=== PATIENT | female | born 1970 | race African-American/Black ===

== ENCOUNTER 2016-11-30 12:39 | Inpatient (IN) | payer OTHER ==
[2016-11-30] VITALS (7 sets, daily range): BP systolic 112–176; BP diastolic 66–100
[~2016-11-30] VITALS: Ht 157.4 cm; Wt 93.1 kg
[~2016-11-30 12:39] MED LIST: AUGMENTIN 875875 MG PO; BLOOD PRESSURE PO; MOTRIN800 MG PO; NKHM
[2016-11-30] MEDS ORDERED: NORVASC10 MG PO (13:13)
[2016-11-30 13:33] LABS: BASO # 0.1 10*3/uL (0.0-0.1); BASO % 0.7 % (0.0-1.0); EOS # 0.9 10*3/uL (0.0-0.4); EOS % 7.9 % (1.0-4.0); HEMATOCRIT 37.6 % (37.0-47.0); HEMOGLOBIN 11.9 g/dl (12.0-16.0); IG # 0.1 10*3/uL (0.0-0.1); LYMPH # 2.3 10*3/uL (1.3-4.4); LYMPH % 20.4 % (27.0-41.0); MEAN CELL VOLUME 85.1 fl (81.0-99.0); MEAN CORPUSCULAR HGB 26.9 pg (27.0-31.0); MEAN CORPUSCULAR HGB CONC 31.6 g/dl (33.0-37.0); MEAN PLATELET VOLUME 9.7 fl (9.6-12.3); MONO # 0.7 10*3/uL (0.1-1.0); MONO % 6.4 % (3.0-9.0); NEUT # 7.2 10*3/uL (2.3-7.9); NEUT % 64.2 % (47.0-73.0); PLATELET COUNT AUTOMATED 334 10*3/uL (130-400); RED BLOOD COUNT 4.42 10*6/uL (4.10-5.10); RED CELL DISTRI WIDTH 13.2 % (0-14.5); WHITE BLOOD COUNT 11.3 10*3/uL (4.8-10.8)
[2016-11-30 13:50] LABS: ALBUMIN 3.8 gm/dl (3.1-4.5); ALKALINE PHOSPHATASE 98 U/L (45-117); BILIRUBIN, TOTAL 0.4 mg/dl (0.2-1.0); BUN 9 mg/dl (7-24); CARBON DIOXIDE 30 mmol/L (21-32); CHLORIDE 103 mmol/L (98-107); EST GLOM FILT AFRICAN AMERICAN > 60 ml/min; GLUCOSE 138 mg/dL (65-99); POTASSIUM 3.7 mmol/L (3.5-5.1); SGOT/AST 17 IU/L (3-35); SGPT/ALT 24 U/L (12-78); SODIUM 140 mmol/L (136-145); TOTAL PROTEIN 7.6 gm/dL (6.4-8.2)
[2016-12-01] VITALS (7 sets, daily range): BP systolic 117–153; BP diastolic 60–88
[2016-12-01 07:38] LABS: BASO % 0.1 % (0.0-1.0); HEMATOCRIT 36.8 % (37.0-47.0); HEMOGLOBIN 11.5 g/dl (12.0-16.0); IG # 0.2 10*3/uL (0.0-0.1); LYMPH # 1.6 10*3/uL (1.3-4.4); MEAN CELL VOLUME 83.8 fl (81.0-99.0); MEAN CORPUSCULAR HGB 26.2 pg (27.0-31.0); MEAN CORPUSCULAR HGB CONC 31.3 g/dl (33.0-37.0); MEAN PLATELET VOLUME 10.1 fl (9.6-12.3); MONO # 0.3 10*3/uL (0.1-1.0); MONO % 1.8 % (3.0-9.0); NEUT # 13.7 10*3/uL (2.3-7.9); NEUT % 87.1 % (47.0-73.0); PLATELET COUNT AUTOMATED 360 10*3/uL (130-400); RED BLOOD COUNT 4.39 10*6/uL (4.10-5.10); RED CELL DISTRI WIDTH 13.2 % (0-14.5); WHITE BLOOD COUNT 15.7 10*3/uL (4.8-10.8)
[2016-12-01 08:11] LABS: ALBUMIN 3.7 gm/dl (3.1-4.5); ALKALINE PHOSPHATASE 85 U/L (45-117); BILIRUBIN, TOTAL 0.5 mg/dl (0.2-1.0); BUN 13 mg/dl (7-24); CARBON DIOXIDE 29 mmol/L (21-32); CHLORIDE 100 mmol/L (98-107); CHOLESTEROL 199 mg/dL (<200); EST GLOM FILT AFRICAN AMERICAN > 60 ml/min; GLUCOSE 152 mg/dL (65-99); HDL CHOLESTEROL 69 mg/dl (40-60); LDL CHOLESTEROL 121 mg/dL (9-159); PHOSPHOROUS 3.3 mg/dL (2.5-4.9); POTASSIUM 3.8 mmol/L (3.5-5.1); SGOT/AST 13 IU/L (3-35); SGPT/ALT 24 U/L (12-78); SODIUM 136 mmol/L (136-145); TOTAL PROTEIN 7.5 gm/dL (6.4-8.2); TRIGLYCERIDES 43 mg/dl (<150); VLDL CHOLESTEROL 9 mg/dL (6-40)
[2016-12-01 08:17] LABS: THYROID STIM HORMONE (HS) 0.388 uIU/ml (0.358-4.75)
[2016-12-01 08:19] LABS: HEMOGLOBIN A1c 6.2 % (4.8-5.6)
[2016-12-01 08:25] LABS: PROTHROMBIN TIME 10.3 SECONDS (9.0-12.4)
[2016-12-01 09:16] LABS: VITAMIN D, 25-HYDROXY 13.8 ng/mL (30-100)
[2016-12-01 09:17] LABS: FOLIC ACID 11.98 ng/mL (>5.38)
[2016-12-02] VITALS: BP 141/82
[2016-12-02 06:48] LABS: BASO # 0.1 10*3/uL (0.0-0.1); BASO % 0.4 % (0.0-1.0); EOS # 0.1 10*3/uL (0.0-0.4); EOS % 0.5 % (1.0-4.0); HEMATOCRIT 35.2 % (37.0-47.0); HEMOGLOBIN 10.9 g/dl (12.0-16.0); IG # 0.1 10*3/uL (0.0-0.1); LYMPH # 4.4 10*3/uL (1.3-4.4); LYMPH % 29.2 % (27.0-41.0); MEAN CELL VOLUME 85.6 fl (81.0-99.0); MEAN CORPUSCULAR HGB 26.5 pg (27.0-31.0); MEAN PLATELET VOLUME 10.2 fl (9.6-12.3); NEUT # 9.2 10*3/uL (2.3-7.9); NEUT % 62.1 % (47.0-73.0); PLATELET COUNT AUTOMATED 326 10*3/uL (130-400); RED BLOOD COUNT 4.11 10*6/uL (4.10-5.10); RED CELL DISTRI WIDTH 13.5 % (0-14.5); WHITE BLOOD COUNT 14.9 10*3/uL (4.8-10.8)
[2016-12-02 08:00] VITALS: BP 125/69
[2016-12-02 12:00] VITALS: BP 114/73
[2016-12-02] MEDS ORDERED: VITAMIN D50000 I3 PO (12:32)
[2016-12-02] MEDS ORDERED: LISINOPRIL5 MG PO (12:32)
[2016-12-02] MEDS ORDERED: TOPAMAX25 M3 PO (12:32)
[2016-12-02] MEDS ORDERED: DEEP SEA 45 ML45 ML NAS (12:37)
== END 2016-12-02 13:16 | disposition home or self-care (01) | DRG 305 ==
LOC: ED 12:39 → EDHOLD 17:41 → 5E 17:41
PROVIDERS: Internal Medicine; Registered Nurse; Student in an Organized Health Care Education/Training Program
DX: I16.1 Hypertensive emergency (principal); E55.9 Vitamin D deficiency, unspecified; I10 Essential (primary) hypertension; D72.810 Lymphocytopenia; R73.9 Hyperglycemia, unspecified; L83 Acanthosis nigricans; J32.8 Other chronic sinusitis; R42 Dizziness and giddiness; G43.909 Migraine, unspecified, not intractable, without status migrainosus; Z82.3 Family history of stroke; Z82.49 Family history of ischemic heart disease and other diseases of the circulatory system; Z79.899 Other long term (current) drug therapy

== ENCOUNTER 2016-12-20 08:14 | Emergency (ER) | payer OTHER ==
[~2016-12-20 08:14] MED LIST changes: +DEEP SEA 45 ML45 ML NAS; +LISINOPRIL5 MG PO; +NORVASC10 MG PO; +TOPAMAX25 M3 PO; +VITAMIN D50000 I3 PO
[2016-12-20 08:41] LABS: BASO # 0.1 10*3/uL (0.0-0.1); BASO % 0.3 % (0.0-1.0); EOS # 0.2 10*3/uL (0.0-0.4); EOS % 0.7 % (1.0-4.0); HEMATOCRIT 36.1 % (37.0-47.0); HEMOGLOBIN 11.7 g/dl (12.0-16.0); IG # 0.3 10*3/uL (0.0-0.1); LYMPH # 1.3 10*3/uL (1.3-4.4); LYMPH % 5.9 % (27.0-41.0); MEAN CELL VOLUME 84.3 fl (81.0-99.0); MEAN CORPUSCULAR HGB 27.3 pg (27.0-31.0); MEAN CORPUSCULAR HGB CONC 32.4 g/dl (33.0-37.0); MEAN PLATELET VOLUME 9.3 fl (9.6-12.3); MONO # 1.3 10*3/uL (0.1-1.0); NEUT # 18.4 10*3/uL (2.3-7.9); NEUT % 85.9 % (47.0-73.0); PLATELET COUNT AUTOMATED 262 10*3/uL (130-400); RED BLOOD COUNT 4.28 10*6/uL (4.10-5.10); WHITE BLOOD COUNT 21.4 10*3/uL (4.8-10.8)
[2016-12-20 08:50] LABS: PROTHROMBIN TIME 10.7 SECONDS (9.0-12.4)
[2016-12-20 08:58] LABS: ALBUMIN 3.6 gm/dl (3.1-4.5); ALKALINE PHOSPHATASE 107 U/L (45-117); BILIRUBIN, TOTAL 0.7 mg/dl (0.2-1.0); BUN 6 mg/dl (7-24); CARBON DIOXIDE 27 mmol/L (21-32); CHLORIDE 103 mmol/L (98-107); EST GLOM FILT AFRICAN AMERICAN > 60 ml/min; GLUCOSE 152 mg/dL (65-99); POTASSIUM 3.6 mmol/L (3.5-5.1); SGOT/AST 22 IU/L (3-35); SGPT/ALT 31 U/L (12-78); SODIUM 141 mmol/L (136-145); TOTAL PROTEIN 7.9 gm/dL (6.4-8.2)
[2016-12-20 08:59] LABS: TROPONIN I < 0.015 ng/ml (<0.045)
[2016-12-20] MEDS ORDERED: CEPACOL SORE T1 EAC1 MM (09:15)
[2016-12-20] MEDS ORDERED: AUGMENTIN 875875 MG PO (09:15)
== END 2016-12-20 10:59 | disposition home or self-care (01) ==
LOC: ED 08:14
PROVIDERS: Student in an Organized Health Care Education/Training Program
DX: J01.90 Acute sinusitis, unspecified (principal); I10 Essential (primary) hypertension; G43.909 Migraine, unspecified, not intractable, without status migrainosus; Z79.899 Other long term (current) drug therapy

== ENCOUNTER 2016-12-21 09:14 | Emergency (ER) | payer OTHER ==
[~2016-12-21] VITALS: Ht 157.4 cm; Wt 90.7 kg
[~2016-12-21 09:14] MED LIST changes: +CEPACOL SORE T1 EAC1 MM
[2016-12-21 09:55] LABS: HEMATOCRIT 35.1 % (37.0-47.0); HEMOGLOBIN 11.4 g/dl (12.0-16.0); MEAN CELL VOLUME 85.2 fl (81.0-99.0); MEAN CORPUSCULAR HGB 27.7 pg (27.0-31.0); MEAN CORPUSCULAR HGB CONC 32.5 g/dl (33.0-37.0); MEAN PLATELET VOLUME 9.6 fl (9.6-12.3); PLATELET COUNT AUTOMATED 281 10*3/uL (130-400); RED BLOOD COUNT 4.12 10*6/uL (4.10-5.10); RED CELL DISTRI WIDTH 13.8 % (0-14.5); WHITE BLOOD COUNT 18.3 10*3/uL (4.8-10.8)
[2016-12-21 10:14] LABS: ALBUMIN 3.5 gm/dl (3.1-4.5); ALKALINE PHOSPHATASE 119 U/L (45-117); BILIRUBIN, TOTAL 0.6 mg/dl (0.2-1.0); BUN 8 mg/dl (7-24); CARBON DIOXIDE 29 mmol/L (21-32); CHLORIDE 104 mmol/L (98-107); EST GLOM FILT AFRICAN AMERICAN > 60 ml/min; GLUCOSE 120 mg/dL (65-99); POTASSIUM 3.4 mmol/L (3.5-5.1); SGOT/AST 21 IU/L (3-35); SGPT/ALT 33 U/L (12-78); SODIUM 142 mmol/L (136-145)
[2016-12-21 10:16] LABS: MONOCYTE # 2.2 10*3/uL (0.1-1.0); NEUTROPHIL # 14.1 10*3/uL (2.3-7.9); NEUTROPHILS 77 % (47-73); PLATELET SUFFICIENCY NORMAL (NORMAL); TOTAL CELLS COUNTED 100 #CELLS
== END 2016-12-21 14:12 | disposition admitted as inpatient to this hospital (09) ==
LOC: ED 09:14
PROVIDERS: Registered Nurse
DX: A41.9 Sepsis, unspecified organism (principal); J03.90 Acute tonsillitis, unspecified; J02.0 Streptococcal pharyngitis; F17.200 Nicotine dependence, unspecified, uncomplicated; Z79.899 Other long term (current) drug therapy

== ENCOUNTER 2016-12-21 12:05 | Inpatient (IN) | payer OTHER ==
[~2016-12-21] VITALS: Ht 167.6 cm; Wt 72.3 kg
--- NOTE | ~2016-12-21 | CON ---
[place], [place] REPORT OF CONSULTATION NAME: ARELY BEAN UNIT #: [id number] ROOM: 518 DOCTOR: DENNY JOHN MD BIRTHDATE: [birth year] DOS: 12/22/2016 ATTENDING PHYSICIAN: ____ REASON FOR CONSULTATION: Severe tonsillitis. HISTORY OF PRESENT ILLNESS: The patient is a 46-year-old -[place] female who was admitted to [facility] with severe sore throat. The patient did have a rapid strep test positive for of group A beta hemolytic strep. The patient was initially seen in the ER and discharged on Augmentin, but readmitted the following day because of progressive swelling. CT scan of soft tissues of the neck showed no evidence of peritonsillar abscess. The patient has been subsequently admitted and treated with IV Solu-Medrol and Unasyn. PAST MEDICAL HISTORY: Chronic sinusitis, hypertension, polycystic ovarian syndrome, history of tension headache. PAST SURGICAL HISTORY: Laparoscopy, D and C. CURRENT MEDICATIONS: IV Solu-Medrol, vitamin D, lisinopril, Lovenox, Norvasc, potassium, Unasyn. ALLERGIES: There are no known drug allergies. PHYSICAL EXAMINATION: HEENT: The oral cavity and oropharynx shows grade 3 tonsillar enlargement with erythema. There is no midline shift of the uvula. No evidence of peritonsillar abscess. Nose is clear. Ears clear. NECK: Show shotty adenopathy. HEART: Regular rate and rhythm. LUNGS: Clear to auscultation. IMPRESSION: Severe streptococcal tonsillitis. RECOMMENDATIONS: Continue IV Unasyn and IV steroids. The patient is showing signs of clinical improvement and I have recommended that she follow up with ENT 2 weeks after discharge from the hospital. There is no indication for surgical intervention at this time. [place], [place] REPORT OF CONSULTATION NAME: VIKASARELY H UNIT #: [id number] ROOM: 518 DOCTOR: DENNY JOHN MD BIRTHDATE: [birth year] DENNY JOHN MD CM:CONSTR:REPORT OF CONSULTATION 1517 12/22/16 1629 interface
[2016-12-21 14:00] VITALS: BP 126/79
[2016-12-21 16:00] VITALS: BP 124/69
[2016-12-21 20:00] VITALS: BP 120/75
[2016-12-22] VITALS: BP 123/75
[2016-12-22 04:00] VITALS: BP 134/61; BP 136/78
[2016-12-22 06:17] LABS: BASO % 0.1 % (0.0-1.0); HEMOGLOBIN 10.1 g/dl (12.0-16.0); IG # 0.3 10*3/uL (0.0-0.1); LYMPH # 1.7 10*3/uL (1.3-4.4); LYMPH % 10.3 % (27.0-41.0); MEAN CELL VOLUME 83.6 fl (81.0-99.0); MEAN CORPUSCULAR HGB 27.2 pg (27.0-31.0); MEAN CORPUSCULAR HGB CONC 32.6 g/dl (33.0-37.0); MEAN PLATELET VOLUME 10.2 fl (9.6-12.3); MONO # 0.5 10*3/uL (0.1-1.0); MONO % 2.9 % (3.0-9.0); NEUT # 13.9 10*3/uL (2.3-7.9); NEUT % 85.1 % (47.0-73.0); PLATELET COUNT AUTOMATED 304 10*3/uL (130-400); RED BLOOD COUNT 3.71 10*6/uL (4.10-5.10); RED CELL DISTRI WIDTH 13.7 % (0-14.5); WHITE BLOOD COUNT 16.4 10*3/uL (4.8-10.8)
[2016-12-22 06:24] LABS: HEMOGLOBIN A1c 6.6 % (4.8-5.6)
[2016-12-22 06:45] LABS: BILIRUBIN, TOTAL 0.4 mg/dl (0.2-1.0); BUN 8 mg/dl (7-24); CARBON DIOXIDE 26 mmol/L (21-32); CHLORIDE 103 mmol/L (98-107); CHOLESTEROL 190 mg/dL (<200); EST GLOM FILT AFRICAN AMERICAN > 60 ml/min; GLUCOSE 148 mg/dL (65-99); MAGNESIUM 2.2 mg/dL (1.5-2.1); PHOSPHOROUS 2.4 mg/dL (2.5-4.9); POTASSIUM 3.4 mmol/L (3.5-5.1); SGOT/AST 17 IU/L (3-35); SGPT/ALT 29 U/L (12-78); SODIUM 138 mmol/L (136-145); TOTAL PROTEIN 7.1 gm/dL (6.4-8.2); TRIGLYCERIDES 91 mg/dl (<150); VLDL CHOLESTEROL 18 mg/dL (6-40)
[2016-12-22 06:53] LABS: ALKALINE PHOSPHATASE 104 U/L (45-117); HDL CHOLESTEROL 38 mg/dl (40-60); LDL CHOLESTEROL 134 mg/dL (9-159); THYROID STIM HORMONE (HS) 0.192 uIU/ml (0.358-4.75)
[2016-12-22 07:04] LABS: VITAMIN D, 25-HYDROXY 26.9 ng/mL (30-100)
[2016-12-22 07:05] LABS: FOLIC ACID 13.02 ng/mL (>5.38)
[2016-12-22 08:00] VITALS: BP 132/77
[2016-12-22 12:00] VITALS: BP 134/69
[2016-12-22 16:00] VITALS: BP 136/76
[2016-12-22 20:00] VITALS: BP 121/73; BP 128/85
[2016-12-23] VITALS: BP 131/78
[2016-12-23 06:13] LABS: HEMATOCRIT 31.8 % (37.0-47.0); HEMOGLOBIN 10.4 g/dl (12.0-16.0); MEAN CELL VOLUME 84.1 fl (81.0-99.0); MEAN CORPUSCULAR HGB 27.5 pg (27.0-31.0); MEAN CORPUSCULAR HGB CONC 32.7 g/dl (33.0-37.0); MEAN PLATELET VOLUME 10.1 fl (9.6-12.3); PLATELET COUNT AUTOMATED 370 10*3/uL (130-400); RED BLOOD COUNT 3.78 10*6/uL (4.10-5.10); RED CELL DISTRI WIDTH 13.9 % (0-14.5)
[2016-12-23 06:31] LABS: BUN 9 mg/dl (7-24); CARBON DIOXIDE 29 mmol/L (21-32); CHLORIDE 105 mmol/L (98-107); EST GLOM FILT AFRICAN AMERICAN > 60 ml/min; GLUCOSE 141 mg/dL (65-99); POTASSIUM 3.7 mmol/L (3.5-5.1); SODIUM 142 mmol/L (136-145)
[2016-12-23 06:49] LABS: LYMPHOCYTE # 2.6 10*3/uL (1.3-4.4); METAMYELOCYTES 1 % (0-0); MONOCYTE # 0.7 10*3/uL (0.1-1.0); MYELOCYTES 1 % (0-0); NEUTROPHIL # 13.4 10*3/uL (2.3-7.9); NEUTROPHILS 79 % (47-73); PLATELET SUFFICIENCY NORMAL (NORMAL); TOTAL CELLS COUNTED 100 #CELLS
[2016-12-23 08:00] VITALS: BP 118/80
[2016-12-23 12:00] VITALS: BP 131/81
[2016-12-23] MEDS ORDERED: PREDNISONE10 MG PO (13:42)
[2016-12-23] MEDS ORDERED: D-1000 185 MG-11 TAB PO (13:42)
[2016-12-23] MEDS ORDERED: CLINDAMYCIN HC300 MG PO (13:44)
== END 2016-12-23 14:37 | disposition home or self-care (01) | DRG 872 ==
LOC: 5E 12:05 → EDHOLD 12:05 → 4E 12:14 → 5E 12:16
PROVIDERS: Hospitalist
DX: A40.0 Sepsis due to streptococcus, group A (principal); I10 Essential (primary) hypertension; E87.6 Hypokalemia; D64.9 Anemia, unspecified; R73.9 Hyperglycemia, unspecified; J03.00 Acute streptococcal tonsillitis, unspecified; E28.2 Polycystic ovarian syndrome; G44.209 Tension-type headache, unspecified, not intractable; J32.1 Chronic frontal sinusitis; Z82.49 Family history of ischemic heart disease and other diseases of the circulatory system; Z82.3 Family history of stroke; Z79.2 Long term (current) use of antibiotics

== ENCOUNTER → 2017-02-22 | Outpatient (CLI) | payer OTHER ==
[~2017-02-22] MED LIST changes: +CLINDAMYCIN HC300 MG PO; +D-1000 185 MG-11 TAB PO; +PREDNISONE10 MG PO
== END | disposition home or self-care (01) ==
LOC: RAD 11:37
DX: M25.561 Pain in right knee (principal); M25.562 Pain in left knee

== ENCOUNTER → 2017-11-24 | Outpatient (CLI) | payer OTHER | LOC: MAMMO 10:17 | DX: Z12.31 Encounter for screening mammogram for malignant neoplasm of breast (principal) ==

== ENCOUNTER 2019-06-15 09:22 | Emergency (ER) | payer OTHER ==
[~2019-06-15] VITALS: Ht 157.4 cm; Wt 92.5 kg
[2019-06-15 10:00] LABS: HEMATOCRIT 34.9 % (37.0-47.0); HEMOGLOBIN 10.9 g/dl (12.0-16.0); MEAN CELL VOLUME 81.4 fl (81.0-99.0); MEAN CORPUSCULAR HGB 25.4 pg (27.0-31.0); MEAN CORPUSCULAR HGB CONC 31.2 g/dl (33.0-37.0); MEAN PLATELET VOLUME 9.8 fl (9.6-12.3); PLATELET COUNT AUTOMATED 302 10*3/uL (130-400); RED BLOOD COUNT 4.29 10*6/uL (4.10-5.10); RED CELL DISTRI WIDTH 14.6 % (0-14.5); WHITE BLOOD COUNT 18.7 10*3/uL (4.8-10.8)
[2019-06-15 10:14] LABS: ALBUMIN 3.3 gm/dl (3.1-4.5); ALKALINE PHOSPHATASE 115 U/L (45-117); BUN 15 mg/dl (7-24); CHLORIDE 105 mmol/L (98-107); CREATININE 0.89 mg/dL (0.55-1.02); POTASSIUM 3.4 mmol/L (3.5-5.1); SGOT/AST 20 IU/L (3-35); SGPT/ALT 27 U/L (12-78); SODIUM 137 mmol/L (136-145); TOTAL PROTEIN 8.1 gm/dL (6.4-8.2)
[2019-06-15 10:17] LABS: ATYPICAL LYMPHS 4 % (0-0); PLATELET SUFFICIENCY NORMAL (NORMAL); TOTAL CELLS COUNTED 100 #CELLS
[2019-06-15 10:18] LABS: OVALOCYTES FEW; POLYCHROMASIA SLIGHT
[2019-06-15] MEDS ORDERED: PREDNISONE50 MG PO (10:32)
[2019-06-15] MEDS ORDERED: FLONASE ALLERG9.9 ML NAS (10:32)
[2019-06-15] MEDS ORDERED: OMNICEF300 MG PO (10:32)
[2019-06-15] MEDS ORDERED: ZYRTEC10 MG PO (10:33)
== END 2019-06-15 10:47 | disposition home or self-care (01) ==
LOC: ED 09:22
PROVIDERS: Nurse Practitioner Family
DX: B27.90 Infectious mononucleosis, unspecified without complication (principal); J01.90 Acute sinusitis, unspecified; I10 Essential (primary) hypertension; Z79.2 Long term (current) use of antibiotics; Z79.899 Other long term (current) drug therapy

== ENCOUNTER 2019-09-20 09:44 | Emergency (ER) | payer OTHER ==
[~2019-09-20] VITALS: Wt 90.7 kg
[~2019-09-20 09:44] MED LIST changes: +FLONASE ALLERG9.9 ML NAS; +OMNICEF300 MG PO; +PREDNISONE50 MG PO; +ZYRTEC10 MG PO
[2019-09-20 10:44] LABS: BILIRUBIN NEGATIVE (NEGATIVE); CLARITY CLOUDY (CLEAR); COLOR STRAW (YELLOW); GLUCOSE NEGATIVE (NEGATIVE)
[2019-09-20 10:45] LABS: BLOOD 3+ (NEGATIVE); KETONE NEGATIVE (NEGATIVE); LEUKO ESTERASE TRACE (NEGATIVE); NITRITE NEGATIVE (NEGATIVE); UROBILINOGEN 0.2 E.U./dl (0.2-1.0)
[2019-09-20 10:56] LABS: BASO # 0.1 10*3/uL (0.0-0.1); BASO % 0.4 % (0.0-1.0); EOS % 0.1 % (1.0-4.0); HEMATOCRIT 28.7 % (37.0-47.0); LYMPH # 1.4 10*3/uL (1.3-4.4); LYMPH % 6.9 % (27.0-41.0); MEAN CELL VOLUME 81.5 fl (81.0-99.0); MEAN CORPUSCULAR HGB 25.6 pg (27.0-31.0); MEAN CORPUSCULAR HGB CONC 31.4 g/dl (33.0-37.0); MEAN PLATELET VOLUME 11.2 fl (9.6-12.3); MONO # 1.3 10*3/uL (0.1-1.0); MONO % 6.3 % (3.0-9.0); NEUT # 17.6 10*3/uL (2.3-7.9); NEUT % 85.8 % (47.0-73.0); PLATELET COUNT AUTOMATED 322 10*3/uL (130-400); RED BLOOD COUNT 3.52 10*6/uL (4.10-5.10); RED CELL DISTRI WIDTH 15.5 % (0-14.5); WHITE BLOOD COUNT 20.5 10*3/uL (4.8-10.8)
[2019-09-20 10:57] LABS: RBC TNTC rbc/hpf (0-2)
[2019-09-20 11:00] LABS: WBC 41-50 wbc/hpf (0-5)
[2019-09-20 11:02] LABS: BACTERIA 3+
[2019-09-20 11:14] LABS: ALBUMIN 3.2 gm/dl (3.1-4.5); CREATININE 1.17 mg/dL (0.55-1.02); TOTAL PROTEIN 7.8 gm/dL (6.4-8.2)
[2019-09-20] MEDS ORDERED: LEVOFLOXACIN500 MG PO (12:26)
[2019-09-20] MEDS ORDERED: DIFLUCAN150 MG PO (12:26)
== END 2019-09-20 12:38 | disposition home or self-care (01) ==
LOC: ED 09:44
PROVIDERS: Internal Medicine
DX: J18.9 Pneumonia, unspecified organism (principal); N39.0 Urinary tract infection, site not specified; I10 Essential (primary) hypertension; Z79.2 Long term (current) use of antibiotics; Z79.899 Other long term (current) drug therapy

== ENCOUNTER → 2021-01-22 | Outpatient (CLI) | payer OTHER ==
[~2021-01-22] MED LIST changes: +DIFLUCAN150 MG PO; +LEVOFLOXACIN500 MG PO
== END | disposition home or self-care (01) ==
LOC: MAMMO 01-13 11:30
PROVIDERS: ATTEND Nurse Practitioner Family
DX: Z12.31 Encounter for screening mammogram for malignant neoplasm of breast (principal); I10 Essential (primary) hypertension; N64.89 Other specified disorders of breast

== ENCOUNTER → 2022-01-16 | Outpatient (CLI) | payer OTHER | END | disposition home or self-care (01) | LOC: CT 10:00 | PROVIDERS: ATTEND Specialist | DX: J34.2 Deviated nasal septum (principal) ==

== ENCOUNTER 2022-03-16 16:11 | Emergency (ER) | payer OTHER ==
[~2022-03-16] VITALS: Ht 157.4 cm; Wt 93.4 kg
== END 2022-03-16 18:48 | disposition home or self-care (01) ==
LOC: ED 16:11
DX: B00.1 Herpesviral vesicular dermatitis (principal); R05.9 Cough, unspecified; Z79.2 Long term (current) use of antibiotics; Z79.899 Other long term (current) drug therapy

== ENCOUNTER 2022-10-06 18:13 | Emergency (ER) | payer OTHER ==
[~2022-10-06] VITALS: Ht 157.4 cm; Wt 94.3 kg
[2022-10-06 19:10] LABS: BASO # 0.1 10*3/uL (0.0-0.1); BASO % 0.8 % (0.0-1.0); EOS # 0.6 10*3/uL (0.0-0.4); EOS % 4.7 % (1.0-4.0); HEMATOCRIT 35.1 % (37.0-47.0); LYMPH # 3.3 10*3/uL (1.3-4.4); LYMPH % 28.1 % (27.0-41.0); MEAN CELL VOLUME 81.1 fl (81.0-99.0); MEAN CORPUSCULAR HGB 24.2 pg (27.0-31.0); MEAN CORPUSCULAR HGB CONC 29.9 g/dl (33.0-37.0); MONO # 0.9 10*3/uL (0.1-1.0); MONO % 7.5 % (3.0-9.0); NEUT # 6.8 10*3/uL (2.3-7.9); NEUT % 58.3 % (47.0-73.0); PLATELET COUNT AUTOMATED 397 10*3/uL (130-400); RED BLOOD COUNT 4.33 10*6/uL (4.10-5.10); RED CELL DISTRI WIDTH 14.9 % (0-14.5); WHITE BLOOD COUNT 11.7 10*3/uL (4.8-10.8)
[2022-10-06 19:24] LABS: POTASSIUM 4.5 mmol/L (3.4-5.1); TOTAL PROTEIN 7.3 gm/dL (6.0-8.0)
[2022-10-06] MEDS ORDERED: AMOX-CLAV 875-1 EACH PO (20:00)
[2022-10-06] MEDS ORDERED: BENZONATATE100 M1 PO (20:02)
== END 2022-10-06 20:20 | disposition home or self-care (01) ==
LOC: ED 18:13
PROVIDERS: Nurse Practitioner Family
DX: J01.90 Acute sinusitis, unspecified (principal); I10 Essential (primary) hypertension; D64.9 Anemia, unspecified; Z88.8 Allergy status to other drugs, medicaments and biological substances; Z98.890 Other specified postprocedural states

== ENCOUNTER → 2022-10-15 | Outpatient (CLI) | payer OTHER ==
[~2022-10-15] MED LIST changes: +AMOX-CLAV 875-1 EACH PO; +BENZONATATE100 M1 PO
== END | disposition home or self-care (01) ==
LOC: CARD 14:57
PROVIDERS: ATTEND Internal Medicine
DX: I11.9 Hypertensive heart disease without heart failure (principal); R42 Dizziness and giddiness; E66.9 Obesity, unspecified; I42.2 Other hypertrophic cardiomyopathy

== ENCOUNTER → 2023-05-03 | Outpatient (CLI) | payer OTHER | END | disposition home or self-care (01) | LOC: MAMMO 04-07 09:30 | PROVIDERS: ATTEND Internal Medicine | DX: Z12.31 Encounter for screening mammogram for malignant neoplasm of breast (principal); N63.10 Unspecified lump in the right breast, unspecified quadrant ==

== ENCOUNTER → 2023-05-20 | Outpatient (CLI) | payer OTHER | END | disposition home or self-care (01) | LOC: US 12:30 | PROVIDERS: ATTEND Nurse Practitioner Family | DX: N63.10 Unspecified lump in the right breast, unspecified quadrant (principal); R92.8 Other abnormal and inconclusive findings on diagnostic imaging of breast ==

== ENCOUNTER → 2023-06-16 | Outpatient (CLI) | payer OTHER | END | disposition home or self-care (01) | LOC: SDC 09:00 → EDSTATUS 09:00 → SDC 11:00 | PROVIDERS: ATTEND Nurse Practitioner Women's Health | DX: R92.8 Other abnormal and inconclusive findings on diagnostic imaging of breast (principal); N63.41 Unspecified lump in right breast, subareolar; N64.89 Other specified disorders of breast ==